=== PATIENT | male | born 1980 | race Caucasian/White ===

== ENCOUNTER 2018-04-16 08:06 | Emergency (ER) | payer OTHER ==
[~2018-04-16] VITALS: Ht 165.1 cm; Wt 70.3 kg
[2018-04-16 08:51] VITALS: Ht 165.1 cm; Wt 70.3 kg
[2018-04-16 12:09] VITALS: BP 121/80
== END 2018-04-16 12:09 | disposition home or self-care (01) ==
LOC: ED 08:06
DX: I86.1 Scrotal varices (principal); R07.89 Other chest pain
CPT/HCPCS: J1885; Q0092